=== PATIENT | female | born 1985 | race Caucasian/White ===

== ENCOUNTER 2018-03-27 03:14 | Emergency (ER) | payer BC, OTHER ==
[2018-03-27 03:14] VITALS: O2SAT 99
[2018-03-27 03:27] VITALS: BP 115/74; PULSE 85; RESP 16; TEMP 97.3
[2018-03-27] MEDS ORDERED: HYDROMORPHONE HCL 2 MG/ML SOL IM ONE (03:40)
[2018-03-27] MEDS ORDERED: ONDANSETRON 4 MG ODT BU ONE (03:41)
[2018-03-27] MEDS ORDERED: GABAPENTIN 100 MG CAP PO ONE (03:42)
[2018-03-27] MEDS ORDERED: HYDROMORPHONE 1 MG/ML SYRINGE ONE (03:42)
[2018-03-27] MEDS ORDERED: ONDANSETRON 4 MG ODT ONE (03:42)
[2018-03-27] MEDS ORDERED: GABAPENTIN 100 MG CAP ONE (03:45)
== END 2018-03-27 03:56 | disposition home or self-care (01) ==
LOC: ED 03:14
DX: M26.629 Arthralgia of temporomandibular joint, unspecified side (principal)
CPT/HCPCS: 96372; 99282; A9270-GY; J1170